=== PATIENT | female | born 1960 | race Caucasian/White ===

== ENCOUNTER → 2019-08-24 12:59 | Outpatient (BNVA) | payer OTHER, SELFPAY | PROVIDERS: Family Provider Nurse Practitioner; PCP Nurse Practitioner; Visit Provider Anesthesiology | DX: M54.41 Lumbago with sciatica, right side (principal); M54.2 Cervicalgia; Z98.890 Other specified postprocedural states; F17.210 Nicotine dependence, cigarettes, uncomplicated; Z79.891 Long term (current) use of opiate analgesic | CPT/HCPCS: 99214 ==

== ENCOUNTER 2019-09-18 15:41 | Outpatient (CLI) | payer OTHER, SELFPAY ==
--- NOTE | 2019-09-18 15:50 | CT_ITS ---
WS: [id number] CT LUMBAR SPINE, noncontrast. HISTORY: LOWER BACK PAIN TECHNIQUE: Contiguous 2.5 mm axial imaging are performed. Sagittal and coronal reformats are submitte d and reviewed. All CT scans at [facility] use at least one of these dose optimization te chniques: automated exposure control; mA and/or kV adjustment per patient size (includes targeted exa ms where dose is matched to clinical indication); or iterative reconstruction. IV contrast: None DLP: 1681.68 mGycm COMPARISON: 06/09/2019 Normal alignment. Severe disc space narrowing and desiccation at L5-S1. Vacuum disc phenomenon with o steophytes at the L5-S1 level. Sclerotic changes along the endplates. No fractures. L1-2: Normal. L2-3: Mild annular disc bulging with partially calcified posterior disc. Mild facet arthropathy witho ut stenosis. L3-4: Mild annular disc bulging with partially calcified central disc. Mild narrowing of the central canal, subarticular recesses and foramen. L4-5: Annular disc bulging with a proximal RIGHT foraminal and subarticular recess protrusion. Modera te RIGHT foraminal and subarticular recess narrowing. Mild foraminal stenosis on the LEFT. L5-S1: Annular disc bulging. LEFT foraminal disc osteophyte disease. Large osteophytes extend into th e LEFT subarticular recess and foramen with significant stenosis. Smaller osteophytes in the RIGHT fo ramen. Visualized retroperitoneum is normal. Scattered calcification within the aorta. CT/CT lumbar spine wo con* [id number] IMPRESSION: 1. Severe LEFT subarticular recess and foraminal stenosis at L5-S1 with encroa chment upon the LEFT S1 and L5 nerve roots. 2. Moderate RIGHT foraminal and subarticular recess stenosis at L4-5. 3. Mild central, subarticular recess and foraminal narrowing at L3-4. 4. Severe degenerative disc disease at L5-S1.
== END 2019-09-18 15:42 | disposition home or self-care (01) ==
LOC: RADWPI 15:46
PROVIDERS: Family Provider Nurse Practitioner; PCP Nurse Practitioner; Visit Provider Nurse Practitioner
DX: M51.37 Other intervertebral disc degeneration, lumbosacral region (principal); M48.07 Spinal stenosis, lumbosacral region; M48.061 Spinal stenosis, lumbar region without neurogenic claudication
CPT/HCPCS: 72131

== ENCOUNTER → 2019-10-31 13:35 | Outpatient (BNVA) | payer OTHER, SELFPAY | PROVIDERS: Family Provider Nurse Practitioner; PCP Nurse Practitioner; Visit Provider Nurse Practitioner | DX: M54.5 Low back pain (principal); M54.2 Cervicalgia; F17.210 Nicotine dependence, cigarettes, uncomplicated; Z98.890 Other specified postprocedural states; Z79.891 Long term (current) use of opiate analgesic | CPT/HCPCS: 99214 ==

== ENCOUNTER → 2020-03-05 12:53 | Outpatient (BNVA) | payer OTHER, SELFPAY | PROVIDERS: Family Provider Nurse Practitioner; PCP Nurse Practitioner; Visit Provider Anesthesiology | DX: M54.41 Lumbago with sciatica, right side (principal); M54.42 Lumbago with sciatica, left side; M54.2 Cervicalgia; F17.210 Nicotine dependence, cigarettes, uncomplicated; Z79.891 Long term (current) use of opiate analgesic; Z98.890 Other specified postprocedural states | CPT/HCPCS: 99214 ==

== ENCOUNTER → 2020-04-23 13:23 | Outpatient (BNVA) | payer OTHER, SELFPAY | PROVIDERS: Family Provider Nurse Practitioner; PCP Nurse Practitioner; Visit Provider Nurse Practitioner | DX: M54.42 Lumbago with sciatica, left side (principal); M54.41 Lumbago with sciatica, right side; M54.2 Cervicalgia; F17.210 Nicotine dependence, cigarettes, uncomplicated; Z98.890 Other specified postprocedural states; Z79.891 Long term (current) use of opiate analgesic; Z71.6 Tobacco abuse counseling | CPT/HCPCS: 99214 ==

== ENCOUNTER → 2020-06-20 12:43 | Outpatient (BNVA) | payer OTHER, SELFPAY | PROVIDERS: Family Provider Nurse Practitioner; PCP Nurse Practitioner; Visit Provider Anesthesiology | DX: M25.551 Pain in right hip (principal); M54.41 Lumbago with sciatica, right side; M54.2 Cervicalgia; F17.210 Nicotine dependence, cigarettes, uncomplicated; Z79.891 Long term (current) use of opiate analgesic; Z98.890 Other specified postprocedural states; Z71.6 Tobacco abuse counseling | CPT/HCPCS: 99214 ==

== ENCOUNTER → 2020-09-03 08:52 | Outpatient (BNVA) | payer OTHER, SELFPAY | PROVIDERS: Family Provider Nurse Practitioner; PCP Nurse Practitioner; Visit Provider Nurse Practitioner | DX: M54.41 Lumbago with sciatica, right side (principal); M54.2 Cervicalgia; F17.210 Nicotine dependence, cigarettes, uncomplicated; Z79.891 Long term (current) use of opiate analgesic; Z71.6 Tobacco abuse counseling | CPT/HCPCS: 99213; 99214 ==

== ENCOUNTER → 2020-11-21 13:47 | Outpatient (BNVA) | payer OTHER, SELFPAY | PROVIDERS: Family Provider Nurse Practitioner; PCP Nurse Practitioner; Visit Provider Nurse Practitioner | DX: M54.41 Lumbago with sciatica, right side (principal); M54.2 Cervicalgia; F17.210 Nicotine dependence, cigarettes, uncomplicated; Z98.890 Other specified postprocedural states; Z79.891 Long term (current) use of opiate analgesic; Z71.6 Tobacco abuse counseling | CPT/HCPCS: 99213; 99214 ==

== ENCOUNTER → 2021-01-14 11:09 | Outpatient (BNVA) | payer OTHER, SELFPAY | PROVIDERS: Family Provider Nurse Practitioner; PCP Nurse Practitioner; Visit Provider Nurse Practitioner | DX: M54.41 Lumbago with sciatica, right side (principal); M54.2 Cervicalgia; F17.210 Nicotine dependence, cigarettes, uncomplicated; Z98.890 Other specified postprocedural states; Z79.891 Long term (current) use of opiate analgesic; Z71.6 Tobacco abuse counseling | CPT/HCPCS: 99214 ==

== ENCOUNTER → 2021-02-25 10:33 | Outpatient (BNVA) | payer OTHER, SELFPAY | PROVIDERS: Family Provider Nurse Practitioner; PCP Nurse Practitioner; Visit Provider Nurse Practitioner | DX: M54.41 Lumbago with sciatica, right side (principal); M54.2 Cervicalgia; F17.210 Nicotine dependence, cigarettes, uncomplicated; Z98.890 Other specified postprocedural states; Z79.891 Long term (current) use of opiate analgesic; Z71.6 Tobacco abuse counseling | CPT/HCPCS: 99214; 99406 ==

== ENCOUNTER → 2021-04-22 13:08 | Outpatient (BNVA) | payer OTHER, SELFPAY | PROVIDERS: Family Provider Nurse Practitioner; PCP Nurse Practitioner; Visit Provider Nurse Practitioner | DX: M54.41 Lumbago with sciatica, right side (principal); M54.2 Cervicalgia; F17.210 Nicotine dependence, cigarettes, uncomplicated; Z98.890 Other specified postprocedural states; Z79.891 Long term (current) use of opiate analgesic | CPT/HCPCS: 99212; 99213 ==

== ENCOUNTER → 2021-06-20 08:22 | Outpatient (BNVA) | payer OTHER, SELFPAY | PROVIDERS: Family Provider Nurse Practitioner; PCP Nurse Practitioner; Visit Provider Anesthesiology | DX: G89.29 Other chronic pain (principal); M54.50 Low back pain, unspecified; M54.2 Cervicalgia; F17.200 Nicotine dependence, unspecified, uncomplicated; Z98.890 Other specified postprocedural states; Z79.891 Long term (current) use of opiate analgesic; Z71.6 Tobacco abuse counseling | CPT/HCPCS: 99214 ==

== ENCOUNTER → 2021-08-14 13:39 | Outpatient (BNVA) | payer OTHER, SELFPAY | PROVIDERS: Family Provider Nurse Practitioner; PCP Nurse Practitioner; Visit Provider Anesthesiology | DX: G89.29 Other chronic pain (principal); M54.41 Lumbago with sciatica, right side; M54.2 Cervicalgia; F17.200 Nicotine dependence, unspecified, uncomplicated; Z98.890 Other specified postprocedural states; Z79.891 Long term (current) use of opiate analgesic; Z71.6 Tobacco abuse counseling | CPT/HCPCS: 99214 ==

== ENCOUNTER 2021-09-03 08:48 | Outpatient (CLI) | payer OTHER, SELFPAY ==
--- NOTE | 2021-09-03 09:01 | XR_ITS ---
WS: [email or web address] Exam: XR chest 2V* [id number] Date/Time of Exam: 09/03/2021 9:05 AM Reason For Exam: REPEAT XRAY FROM ABNORMAL/NEW ?LEFT LOWER LOBE LESION No previous exams. The lungs are clear and fully expanded. Several scattered calcified granulomas noted. Normal cardiome diastinal silhouette. No pleural effusions. Regional bony elements appear normal. Fusion hardware in the lower cervical spine. XR/XR chest 2V* [id number] IMPRESSION: 1. No acute cardiopulmonary finding.
--- NOTE | 2021-09-03 09:01 | CT_ITS ---
WS: [id number] CT CHEST WITH INTRAVENOUS CONTRAST HISTORY: ABNORMAL CHEST XRAY TECHNIQUE: Contiguous 5 mm axial imaging performed on the thorax. Coronal and sagittal reformats are submitted. All CT scans at [facility] use at least one of these dose optimization techniques: automated exposure control; mA and/or kV adjustment per patient size (includes targeted exams where dose is matched to clinical indication); or iterative reconstruction. CONTRAST: Omnipaque 300; 95 mL IV. DLP: 723.15 mGy.cm COMPARISON: Chest 09/03/2021 Lungs and central airway: Lungs are well expanded. There is a 4 mm noncalcified nodule in the LEFT up per lobe, image 17 of series 3. Otherwise lungs are clear. No abnormality in the LEFT lower lobe. Pleura: Normal. No pleural effusion. Heart and pericardium: Very slightly enlarged LEFT heart chambers. No pericardial effusion. No RIGHT heart strain. Mediastinum and rachel: No mediastinum or hilar adenopathy. Vessels: Normal size aortic and pulmonary artery. No coronary artery calcifications. Chest wall and lower neck: Mildly enlarged thyroid and substernal. Most likely secondary to a goiter. Upper abdomen: Mild diffuse hepatic steatosis. The entire liver is not visualized. Of the visualized structures of the upper abdomen no abnormality is identified. Osseous structures: Mild spondylitic changes in the thoracic spine. Prior cervical fusion is incomple tely visualized. CT/CT chest w con* [id number] IMPRESSION: 1. No LEFT lower lobe mass or abnormality identified. 2. Indeterminate solid pulmonary nodule measuring 4 mm. In a high-risk patient with a solid nodule <6 mm, CT at 12 months is optional with stronger considera tion if there is suspicious nodule morphology and/or upper lobe location. A non -calcified 4 mm solid nodule in the left upper lobe is indeterminate. Jroge H, et al. Guidelines for Management of Incidental Pulmonary Nodules De tected on CT Images: From the Fleischner Society 2017. Radiology. 2017 [place];284( 1):228-243.
[2021-09-03] MEDS: iohexol 300 mg/mL 100 mL Btl IV (09:38)
== END 2021-09-03 08:49 | disposition home or self-care (01) ==
LOC: RAD 08:50
PROVIDERS: PCP Nurse Practitioner; Visit Provider Nurse Practitioner
DX: R91.8 Other nonspecific abnormal finding of lung field (principal); R91.1 Solitary pulmonary nodule
CPT/HCPCS: 71046; 71260

== ENCOUNTER 2021-12-02 10:54 | Outpatient (CLI) | payer OTHER, SELFPAY ==
--- NOTE | 2021-12-02 11:17 | CT_ITS ---
WS: [id number] CT CHEST WITH INTRAVENOUS CONTRAST HISTORY: FOLLOW UP ON L UPPER LOBE NODULE TECHNIQUE: Contiguous 5 mm axial imaging performed on the thorax. Coronal and sagittal reformats are submitted. All CT scans at [facility] use at least one of these dose optimization techniques: automated exposure control; mA and/or kV adjustment per patient size (includes targeted exams where dose is matched to clinical indication); or iterative reconstruction. CONTRAST: Omnipaque 350; 95 mL IV. DLP: 720.73 mGy.cm COMPARISON: 09/03/2021 Lungs and central airway: Mild hyperinflation of the lungs. Again noted is the very vague 4 mm nodule periphery LEFT upper lobe. Less well identified on today's examination with no increase in size. No additional nodules or masses. Pleura: Normal. No pleural effusion. Heart and pericardium: Normal size heart with no pericardial effusion. Mediastinum and rachel: Small mediastinal and hilar lymph nodes. No adenopathy. Vessels: Normal size aortic and pulmonary artery. No coronary artery calcifications. Chest wall and lower neck: Enlarged thyroid extends substernal on the LEFT. No discrete nodules. Upper abdomen: Diffuse hepatic steatosis. Tricuspid regurgitation into hepatic veins. Osseous structures: No destructive process. CT/CT chest w con* [id number] IMPRESSION: 1. No change in the 4 mm noncalcified nodule LEFT upper lobe. Recommend follow -up chest CT in 12 months. 2. No pneumonia or additional nodule. 3. Mildly enlarged thyroid.
[2021-12-02] MEDS: iohexol 350 mg/mL 100 mL Btl IV (11:39)
== END 2021-12-02 10:55 | disposition home or self-care (01) ==
LOC: RAD 10:56
PROVIDERS: PCP Nurse Practitioner; Visit Provider Nurse Practitioner
DX: R91.1 Solitary pulmonary nodule (principal); E04.9 Nontoxic goiter, unspecified
CPT/HCPCS: 71260

== ENCOUNTER 2021-12-08 09:18 | Outpatient (CLI) | payer OTHER, SELFPAY ==
--- NOTE | 2021-12-08 09:25 | MR_ITS ---
WS: [id number] MRI LUMBAR SPINE NONCONTRAST TECHNIQUE: Sagittal T1, T2 and STIR imaging. Axial T1 and T2 imaging. CLINICAL INFORMATION: LUMBAR DISC DISEASE WITH RADICULOPATHY COMPARISON: MRI 2019 FINDINGS: Mild lumbar curve. No acute compression. Disc bulging worse at L3-L4 L4-L5 and L5-S1. Prior postoperative changes cervical spine ACDF C6-C7. Mild disc bulging C4-C5 and C5-C6 with mild ce ntral canal stenosis on the superintendent sales imaging. L1-L2: No significant disc bulging. Mild facet arthropathy. Spinal canal and foramen are patent. L2-L3: Mild annular bulging. Slight narrowing of the LEFT subarticular recess. Mild LEFT foraminal na rrowing. Mild facet arthropathy. L3-L4: Mild annular bulging with slight impingement traversing L4 nerve roots bilaterally. Mild facet arthropathy. Mild LEFT foraminal narrowing. L4-L5: Mild disc bulging with osteophytic ridging. Impingement traversing L5 nerve roots bilaterally RIGHT greater than LEFT. Moderate to severe RIGHT foraminal narrowing. Impingement on the exiting RIG HT L4 nerve root. LEFT foramen is patent. Moderate facet arthropathy. L5-S1: Shallow central disc protrusion with slight effacement of ventral thecal sac. Moderate LEFT fo raminal narrowing. Impingement on the exiting LEFT L5 nerve root. RIGHT foramen is patent. Mild facet arthropathy. Visualized pelvic bony structures: Normal. Paravertebral soft tissues: Normal. MR/MR lumbar spine wo con* [id number] IMPRESSION: 1. Mild lumbar curve. No acute compression. No high-grade central canal stenos is. 2. Moderate to severe RIGHT L4-L5 foraminal narrowing impinges the exiting RIG HT L4 nerve root. This is similar to the prior examination. Impingement ashlyn ing RIGHT greater than LEFT L5 nerve roots. 3. Moderate LEFT L5-S1 foraminal narrowing similar to the prior examination. 4. Annular bulging L3-L4 slight impingement traversing L4 nerve roots bilatera lly. Mild LEFT L3-L4 foraminal narrowing. 5. Shallow central protrusion L5-S1 with slight contact of the traversing S1 n erve roots bilaterally. 6. Moderate facet arthropathy L3-L5.
== END 2021-12-08 09:19 | disposition home or self-care (01) ==
LOC: RAD 09:20
PROVIDERS: PCP Nurse Practitioner; Visit Provider General Practice
DX: M51.16 Intervertebral disc disorders with radiculopathy, lumbar region (principal)
CPT/HCPCS: 72148

== ENCOUNTER → 2021-12-17 15:18 | Outpatient (BNVA) | payer OTHER, SELFPAY | PROVIDERS: PCP Nurse Practitioner; Visit Provider Internal Medicine Critical Care Medicine | DX: R91.1 Solitary pulmonary nodule (principal); J43.9 Emphysema, unspecified; F17.210 Nicotine dependence, cigarettes, uncomplicated; K76.0 Fatty (change of) liver, not elsewhere classified | CPT/HCPCS: 99204 ==

== ENCOUNTER 2022-02-19 10:16 | Outpatient (CLI) | payer OTHER, SELFPAY ==
--- NOTE | 2022-02-19 10:47 | PFTS_ITS ---
Date of Study:02/19/22 Date of Dictation: MECHANICS: Forced vital capacity (FVC) is reduced. Forced expiratory volume in one second (FEV1) is normal. FEV1/FVC is normal. FLOW VOLUME LOOP: Normal. LUNG VOLUMES: Total lung capacity (TLC) is normal. Residual volume (RV) is normal. DIFFUSING CAPACITY FOR CARBON MONOXIDE: Normal. INTERPRETATION: The prebronchodilator spirometry is consistent with minimal restriction. Lung volumes are normal. Gas exchange (DLCO) is normal. MTDD
== END 2022-02-19 10:17 | disposition home or self-care (01) ==
LOC: RT 10:16
PROVIDERS: PCP Nurse Practitioner; Visit Provider Internal Medicine Critical Care Medicine
DX: J43.9 Emphysema, unspecified (principal)
CPT/HCPCS: 94010; 94726; 94729

== ENCOUNTER 2022-05-21 09:18 | Outpatient (CLI) | payer OTHER, SELFPAY ==
--- NOTE | 2022-05-21 10:56 | CT_ITS ---
WS: [id number] CT CHEST WITHOUT INTRAVENOUS CONTRAST HISTORY: Pulmonary nodule TECHNIQUE: Contiguous 5 mm axial imaging performed on the thorax. Coronal and sagittal reformats are submitted. All CT scans at [facility] use at least one of these dose optimization techniques: automated exposure control; mA and/or kV adjustment per patient size (includes targeted exams where dose is matched to clinical indication); or iterative reconstruction. CONTRAST: None DLP: 814.53 mGy-cm. COMPARISON: 12/02/2021 1 09/03/2021 Lungs and central airway: No change in the 4 mm noncalcified nodule in the periphery LEFT upper lobe. No new mass, nodule or pneumonia. There is very subtle groundglass attenuation in the periphery of t he lower lung berrios. Pleura: Normal. No pleural effusion. Heart and pericardium: Normal size heart with no pericardial effusion. Mediastinum and rachel: No mediastinum or hilar adenopathy. Vessels: Normal size aortic and pulmonary artery. No coronary artery calcifications. Chest wall and lower neck: No soft tissue masses. Upper abdomen: Hepatic steatosis. Small hiatal hernia. Mildly contracted gallbladder. Osseous structures: No destructive process. CT/CT chest wo con [id number] IMPRESSION: 1. No change 4 mm noncalcified nodule LEFT upper lobe since 09/03/2021. Recomme nd follow-up noncontrast chest CT in 6 months. 2. Hepatic steatosis.
== END 2022-05-21 09:19 | disposition home or self-care (01) ==
PROVIDERS: PCP Nurse Practitioner; Visit Provider Internal Medicine Critical Care Medicine
DX: R91.1 Solitary pulmonary nodule (principal)
CPT/HCPCS: 71250

== ENCOUNTER → 2023-02-22 12:54 | Outpatient (BNVA) | payer OTHER, SELFPAY | PROVIDERS: PCP Nurse Practitioner; Visit Provider Internal Medicine Pulmonary Disease | DX: J43.9 Emphysema, unspecified (principal); J30.2 Other seasonal allergic rhinitis; R91.1 Solitary pulmonary nodule; F17.210 Nicotine dependence, cigarettes, uncomplicated | CPT/HCPCS: 99214 ==

== ENCOUNTER 2023-02-24 13:59 | Outpatient (CLI) | payer OTHER, SELFPAY ==
[2023-02-26 14:29] LABS: Alternaria Alternata (M6) Ige <0.10 kU/L; Alternaria Class 0; Cat Dander (E1) Ige <0.10 kU/L; Cat Dander Class 0; Common Ragweed (Short) (W1) Ig <0.10 kU/L; D. Farinae Class 0; Dermatophagoides Class 0; Dermatophagoides Farinae (D2) <0.10 kU/L; Dermatophagoides Pteronyssinus <0.10 kU/L; Dog Dander (E5) Ige 0.13 kU/L; Dog Dander Class 0/1; Elm (T8) Ige <0.10 kU/L; Elm Class 0; English Plantain (W9) Ige <0.10 kU/L; English Plantain Class 0; House Dust (Greer) (H1) Ige <0.10 kU/L; House Dust (Hollister- Stier) <0.10 kU/L; House Dust Class 0; Immunoglobulin E 63 kU/L (<OR=114); Lamb'S Quarters (Goose Foot) <0.10 kU/L; Lamb'S Quarters Class 0; Maple (Box Elder) (T1) Ige <0.10 kU/L; Maple Class 0; Mucor Racemosus Class 0; Oak (T7) Ige <0.10 kU/L; Oak Class 0; Penicillium Class 0; Penicillium Notatum (M1) Ige <0.10 kU/L; Ragweeed Class 0; Rough Marsh Elder (W16) Ige <0.10 kU/L; Rough Marsh Elder Class 0
[2023-03-01 18:01] LABS: Aspergillus Fumigatus, Igg Ab, 20.2 mg/L (<=102)
[2023-03-03 18:34] LABS: Bermuda Class 0; Bermuda Grass (G2) Ige <0.10 kU/L; Johnson Grass (G10) Ige <0.10 kU/L; Johnson Grass Cl 0; June Grass Class 0; June Grass(Kentucky Blue) (G8) <0.10 kU/L; Meadow Fescue (G4) Ige <0.10 kU/L; Meadow Fescue Class 0; Orchard Grass (Cocksfoot) (G3) <0.10 kU/L; Perennial Rye Grass (G5) Ige <0.10 kU/L; Perennial Rye Grass Class 0; Sweet Vernal Class 0; Sweet Vernal Grass (G1) Ige <0.10 kU/L; Timothy Grass (G6) Ige <0.10 kU/L; Timothy Grass Class 0
== END 2023-02-24 14:00 | disposition home or self-care (01) ==
LOC: LAB 14:04
PROVIDERS: PCP Nurse Practitioner; Visit Provider Internal Medicine Pulmonary Disease
DX: J30.2 Other seasonal allergic rhinitis (principal)
CPT/HCPCS: 36415; 82785; 86003

== ENCOUNTER 2023-03-03 10:55 | Outpatient (CLI) | payer OTHER, SELFPAY ==
--- NOTE | 2023-03-03 11:00 | CTR_ITS ---
PROCEDURE INFORMATION: Exam: CT Chest Without Contrast; Diagnostic Exam date and time: 03/03/2023 11:10 AM Age: 62 years old Clinical indication: Condition or disease; Lung condition and disease; Pulmonary nodule, solitary; Additional info: Lung nodule, do not schedule yet. Awaiting rfs from dc TECHNIQUE: Imaging protocol: Diagnostic computed tomography of the chest without contrast. Radiation optimization: All CT scans at this facility use at least one of these dose optimization techniques: automated exposure control; mA and/or kV adjustment per patient size (includes targeted exams where dose is matched to clinical indication); or iterative reconstruction. REPORTING DATA: Count of CT and Cardiac NM exams in prior 12 months: This patient has received [address] and 0 known cardiac nuclear medicine studies in the 12 months prior to the current study. COMPARISON: 1. CT chest wo con [id number] 05/21/2022 10:[address] chest w con* [id number] 12/02/2021 11:[address] chest w con* [id number] 09/03/2021 9:35 AM RADIATION DOSE METRICS: Total DLP (mGy-cm): 246.11 FINDINGS: Lungs: 4 mm noncalcified left upper lobe nodule on axial image 12 of series 4 is stable from August 2021. No new nodule. No consolidation or mass. Pleural spaces: Unremarkable. No pneumothorax. No pleural effusion. Heart: Unremarkable. No cardiomegaly. No pericardial effusion. Coronary arteries: Mild coronary artery calcification. Lymph nodes: No enlarged lymph nodes. Vasculature: Unremarkable. No aortic aneurysm. Diaphragm: Small hiatal hernia. Bones/joints: Unremarkable. No acute fracture. Soft tissues: Mild bilateral gynecomastia. CT/CT chest wo con [id number] IMPRESSION: 4 mm left upper lobe pulmonary nodule stable from August 2021.
== END 2023-03-03 10:56 | disposition home or self-care (01) ==
PROVIDERS: PCP Nurse Practitioner; Visit Provider Internal Medicine Pulmonary Disease
DX: R91.1 Solitary pulmonary nodule (principal)
CPT/HCPCS: 71250

== ENCOUNTER → 2024-05-02 15:32 | Outpatient (BNVA) | payer OTHER, SELFPAY | PROVIDERS: PCP Nurse Practitioner; Visit Provider Student in an Organized Health Care Education/Training Program | DX: M25.512 Pain in left shoulder; S46.002A Unspecified injury of muscle(s) and tendon(s) of the rotator cuff of left shoulder, initial encounter; X58.XXXA Exposure to other specified factors, initial encounter | CPT/HCPCS: 73030; 99213 ==

== ENCOUNTER 2024-05-25 12:15 | Outpatient (CLI) | payer OTHER, SELFPAY ==
--- NOTE | 2024-05-25 12:15 | MR_ITS ---
WS: [id number] MRI LEFT SHOULDER HISTORY: shoulder pain COMPARISON: Radiograph 05/02/2024 TECHNIQUE: Multiplanar sequences of the shoulder joint are submitted. Mild AC joint arthropathy. Mild hypertrophic bone formation. Mild subacromial impingement during oste ophyte. No os acromion. Biceps tendon remains in the bicipital groove. Mild at the glenohumeral joint. Asymmetric narrowing along the inferior glenohumeral joint. Subchondr al cystic changes and marrow edema along the inferior glenoid with loss of the normal cartilage. Near ly the entire inferior glenoid demonstrates bony sclerosis with edema. Adjacent osteophyte at the hum eral head contributing to the joint narrowing. Very small insertion site tear of the anterior supraspinatus tendon. Mild tendinopathy in the distal subscapularis tendon. The remaining tendons are intact. No retraction or atrophy. No muscle atrophy. Osseous and labral abnormality involving the inferior glenoid and labrum. There is loss of the normal cartilage/labrum and overlying bony cortex. Loss of the normal inferior labrum signal. The abnormal signal extends slightly anterior to involve the anterior labrum also. This may be related to trauma w ith the prior osseous avulsion fracture. MR/MR shoulder LT wo con* [id number] IMPRESSION: 1. Advanced degenerative changes involving the inferior and anterior glenoid. There is edema with loss of cartilage and the overlying labrum. May have been a prior injury with avulsion of the glenoid and labrum. 2. Asymmetric narrowing of the inferior glenohumeral joint. 3. Tiny insertion site tear anterior supraspinatus tendon with no retraction. 4. Mild tendinopathy in the distal subscapularis tendon. 5. No acute fracture.
== END 2024-05-25 12:16 | disposition home or self-care (01) ==
PROVIDERS: PCP Nurse Practitioner; Visit Provider Student in an Organized Health Care Education/Training Program
DX: M19.012 Primary osteoarthritis, left shoulder (principal); M25.712 Osteophyte, left shoulder
CPT/HCPCS: 73221

== ENCOUNTER → 2024-09-14 11:07 | Outpatient (BNVA) | payer OTHER, SELFPAY | PROVIDERS: PCP Nurse Practitioner; Visit Provider Student in an Organized Health Care Education/Training Program | DX: M19.011 Primary osteoarthritis, right shoulder (principal); M19.012 Primary osteoarthritis, left shoulder | CPT/HCPCS: 99213 ==

== ENCOUNTER → 2024-11-03 11:10 | Outpatient (BNVA) | payer OTHER, SELFPAY | PROVIDERS: PCP Nurse Practitioner; Visit Provider Student in an Organized Health Care Education/Training Program | DX: M19.011 Primary osteoarthritis, right shoulder (principal); M19.012 Primary osteoarthritis, left shoulder | CPT/HCPCS: 20610; 77002; J3301; J9999 ==

== ENCOUNTER → 2025-02-01 08:40 | Outpatient (BNVA) | payer OTHER, SELFPAY | PROVIDERS: PCP Nurse Practitioner; Visit Provider Student in an Organized Health Care Education/Training Program | DX: Z12.11 Encounter for screening for malignant neoplasm of colon (principal); R12 Heartburn | CPT/HCPCS: 99204 ==

== ENCOUNTER → 2025-03-30 10:48 | Outpatient (BNVA) | payer OTHER, SELFPAY | PROVIDERS: PCP Nurse Practitioner; Visit Provider Student in an Organized Health Care Education/Training Program | DX: M19.011 Primary osteoarthritis, right shoulder (principal); M19.012 Primary osteoarthritis, left shoulder | CPT/HCPCS: 20610; 77002; J3301; J9999 ==

== ENCOUNTER 2025-04-02 08:59 | Outpatient (CLI) | payer OTHER, SELFPAY ==
--- NOTE | 2025-04-02 09:04 | US_ITS ---
WS: [id number] ULTRASOUND ABDOMEN LIMITED CLINICAL INFORMATION: ABD PAIN/GERD/BLOATING/GALLSTONE NOTED ON LDCT COMPARISON: None. FINDINGS: Liver Size: Normal. Craniocaudal length: 15.6 cm. Echogenicity: Normal. Surface nodularity: None. Mass (size and location): None. Bile ducts Intrahepatic ducts: Normal. Common bile duct diameter: 0.5 cm. Gallbladder Single calculus in the gallbladder. Gallstones: Present Gallbladder sludge: None. Gallbladder wall thickening: None. Pericholecystic fluid: None. Sonographic Haider sign: Absent. Pancreas Normal as visualized. Right kidney: Normal. Hydronephrosis: None. Size: 10.6 cm x 5.5 cm x 5.9 cm. Abdominal aorta and IVC Visualized portions are normal. Ascites: None. US/US abdomen limited [id number] IMPRESSION: 1. Normal liver. 2. Small single calculus in the gallbladder. No gallbladder wall thickening or pericholecystic fluid. 3. No hydronephrosis in the RIGHT kidney. 4. Normal common bile duct.
== END 2025-04-02 09:00 | disposition home or self-care (01) ==
LOC: RAD 09:00
PROVIDERS: PCP Nurse Practitioner; Visit Provider Nurse Practitioner
DX: Z01.89 Encounter for other specified special examinations (principal); K80.20 Calculus of gallbladder without cholecystitis without obstruction
CPT/HCPCS: 76705

== ENCOUNTER → 2025-05-15 09:56 | Outpatient (BNVA) | payer OTHER, SELFPAY | PROVIDERS: PCP Nurse Practitioner; Referring Provider Nurse Practitioner; Visit Provider Surgery | DX: R03.0 Elevated blood-pressure reading, without diagnosis of hypertension (principal) | CPT/HCPCS: 99214 ==

== ENCOUNTER → 2025-06-26 09:10 | Outpatient (BNVA) | payer OTHER, SELFPAY | PROVIDERS: PCP Nurse Practitioner; Visit Provider Student in an Organized Health Care Education/Training Program | DX: M25.562 Pain in left knee (principal); M17.0 Bilateral primary osteoarthritis of knee | CPT/HCPCS: 73560; 73565; 99213 ==

== ENCOUNTER → 2025-07-06 11:04 | Outpatient (BNVA) | payer OTHER, SELFPAY | PROVIDERS: PCP Nurse Practitioner; Visit Provider Student in an Organized Health Care Education/Training Program | DX: M19.011 Primary osteoarthritis, right shoulder (principal); M19.012 Primary osteoarthritis, left shoulder; Z71.89 Other specified counseling | CPT/HCPCS: 20610; 77002; J3301; J9999 ==

== ENCOUNTER → 2025-07-25 09:57 | Outpatient (BNVA) | payer OTHER, SELFPAY | PROVIDERS: PCP Nurse Practitioner; Visit Provider Student in an Organized Health Care Education/Training Program | DX: M17.12 Unilateral primary osteoarthritis, left knee (principal); Z71.89 Other specified counseling | CPT/HCPCS: 20610; 99213; J3301; J9999 ==